=== PATIENT | female | born 1985 | race Caucasian/White ===

== ENCOUNTER 2024-04-11 11:38 | Emergency (ER) | payer MEDICAID, SELFPAY ==
--- NOTE | 2024-04-11 12:04 | ED.GENADULT ---
HPI - General Adult General Chief complaint: Dental/Oral Stated complaint: mouth infection going down neck History of Present Illness HPI narrative: left without completing treatment Related Data Allergies Allergy/AdvReac Type Severity Reaction Status Date / Time Macrolide Antibiotics Allergy Involuntary Verified 04/13/24 13:01 Spasms quetiapine [From Seroquel] Allergy Involuntary Verified 04/13/24 13:01 Spasms trazodone Allergy Involuntary Verified 04/13/24 13:01 Spasms vancomycin Allergy Involuntary Verified 04/13/24 13:01 Spasms PMFSH Social History Social History Smoked in Last 30 Days: Yes Use of substances other than those prescribed or required for medical reasons: Yes Substance Use Type: Crack/Cocaine, Heroin and IV Drugs Substance Use Frequency: Chronic Longstanding Last Used Substance: Days (ago) Advance Directives: No Advance Directives Information Provided: No Do you have a plan to hurt others: No Plan Patient : No Physical Exam ED Vital Signs: BMI result Body Mass Index 28.5 Course Course Course Narrative: This is an RME performed by Cary Guadalupe CNP: Additional HPI, ROS, PE not included below will be deferred to primary provider. Patient is a 38-year-old female who presents to the emergency department reporting concern for dental infection. She reports 4 days ago she had 7 teeth removed from the left side of her mouth, the following day she noticed significant swelling to the face and had concern for infection. She presented back to the dental provider and was given a prescription for amoxicillin. However, despite taking it yesterday she noticed a small lump to the left side of her neck, which has increased in size upon awakening today with discomfort. She reports a history of abscesses and she is concerned that this is an abscess. She denies fevers, chills, shortness of breath, chest pain. Physical exam: Soft palpable lump to the lateral neck. No obvious dental abscess. No trismus. No drooling. No induration of the soft palate. Uvula midline. Exam: Labs, CT Medical Decision Making Lab Data 04/11/24 12:32 04/11/24 12:32 Labs: Lab Results 04/11/24 Range/Units 12:32 WBC 2.9 L (4.8-10.8) X10*3/uL RBC 3.60 L (4.20-5.50) X10*6/uL Hgb 10.3 L (12.0-16.0) g/dl Hct 31.9 L (37.0-47.0) % MCV 88.6 (80.0-98.0) fL MCH 28.6 (27.0-33.0) pg MCHC 32.3 (31.0-35.0) g/dl RDW 17.8 H (11.0-16.0) % Plt Count 171 (160-400) X10*3/uL MPV 8.7 L (9.4-12.3) fL Immature Gran % (Auto) 0.7 H (0.0-0.4) % Neut % (Auto) 45.2 (45-73) % Lymph % (Auto) 22.1 (20-40) % [place] % (Auto) 15.1 H (2-11) % Eos % (Auto) 16.5 H (0-4) % Baso % (Auto) 0.4 (0-2) % Lymph # (Auto) 0.6 L (1.2-4.9) X10*3/uL [place] # (Auto) 0.4 (0.1-1.2) X10*3/uL Eos # (Auto) 0.5 H (0.0-0.4) X10*3/uL Baso # (Auto) 0.0 (0.0-0.2) X10*3/uL Abs Immat Gran (auto) 0.02 (0.00-0.03) X10*3/uL Absolute Neuts (auto) 1.3 L (2.0-8.3) x10*3/uL Absolute Nucleated RBC 0.000 (0.0-0.012) X10*3/uL Nucleated RBC % (auto) 0.0 (0.0-0.2) /100WBC Sodium 141 (135-145) mmol/L Potassium 4.8 (3.3-5.1) mmol/L Chloride 102 (96-108) mmol/L Carbon Dioxide 30 H (22-29) mmol/L Anion Gap 14 (12-20) BUN 35 H (9-16) mg/dL Creatinine 0.82 (0.5-1.4) mg/dL Estim Creat Clear Calc 91.5 Estimated GFR > 60 Random Glucose 86 (60-115) mg/dL Lactic Acid 1.1 (0.5-2.0) mmol/L Calcium 9.6 (8.4-10.2) mg/dL Total Bilirubin 0.2 (0.0-1.0) mg/dL AST 75 H (5-31) U/L ALT 67 H (0-31) U/L Alkaline Phosphatase 93 (39-117) U/L Total Protein 8.1 H (6.5-8.0) g/dL Albumin 3.6 (3.5-5.0) g/dL Discharge Plan Discharge Clinical Impression: Mass of lateral neck Patient Disposition: Left W/O Completing Treatment Discharge Date/Time: 04/11/24 22:00
[2024-04-11 12:05] VITALS: BP 130/55; PULSE 66; RESP 20; TEMP 36.6; O2SAT 96; BMI 28.5
[2024-04-11 12:41] LABS: MANUAL DIFF FLAG NO
[2024-04-11 12:43] LABS: Basophils Percent Auto 0.4 % (0-2); Eosinophils Absolute Auto 0.5 X10*3/uL (0.0-0.4); Eosinophils Percent Auto 16.5 % (0-4); Hematocrit 31.9 % (37.0-47.0); Hemoglobin 10.3 g/dl (12.0-16.0); Imm Gran Abs Auto 0.02 X10*3/uL (0.00-0.03); Imm Gran Pct Auto 0.7 % (0.0-0.4); Lymphocytes Absolute Auto 0.6 X10*3/uL (1.2-4.9); Lymphocytes Percent Auto 22.1 % (20-40); Mean Corpuscular HGB Conc 32.3 g/dl (31.0-35.0); Mean Corpuscular Hemoglobin 28.6 pg (27.0-33.0); Mean Corpuscular Volume 88.6 fL (80.0-98.0); Mean Platelet Volume 8.7 fL (9.4-12.3); Monocytes Absolute Auto 0.4 X10*3/uL (0.1-1.2); Monocytes Percent Auto 15.1 % (2-11); Neutrophils Absolute Auto 1.3 x10*3/uL (2.0-8.3); Neutrophils Percent Auto 45.2 % (45-73); Platelet Count 171 X10*3/uL (160-400); Red Cell Distribution Width 17.8 % (11.0-16.0); White Blood Count 2.9 X10*3/uL (4.8-10.8)
[2024-04-11 12:54] LABS: Lactic Acid 1.1 mmol/L (0.5-2.0)
[2024-04-11 12:57] LABS: Alanine Aminotransferase 67 U/L (0-31); Albumin Level 3.6 g/dL (3.5-5.0); Alkaline Phosphatase 93 U/L (39-117); Anion Gap 14 (12-20); Aspartate Amino Transferase 75 U/L (5-31); Bilirubin Total 0.2 mg/dL (0.0-1.0); Blood Urea Nitrogen 35 mg/dL (9-16); Calcium 9.6 mg/dL (8.4-10.2); Carbon Dioxide 30 mmol/L (22-29); Chloride 102 mmol/L (96-108); Creatinine Clr Calc Pharmacy 91.5; Estimated Glomerular Filt Rate > 60; Glucose Random 86 mg/dL (60-115); Potassium 4.8 mmol/L (3.3-5.1); Sodium 141 mmol/L (135-145); Total Protein 8.1 g/dL (6.5-8.0)
== END 2024-04-11 22:00 | disposition left against medical advice (07) ==
PROVIDERS: Nurse Practitioner Family; Emergency Provider Emergency Medicine
DX: R22.1 Localized swelling, mass and lump, neck (principal); Z79.899 Other long term (current) drug therapy
CPT/HCPCS: 36415; 80053; 83605; 85025; 87040; 99281; 99283

== ENCOUNTER 2024-04-13 11:31 | Emergency (ER) | payer MEDICAID, SELFPAY ==
--- NOTE | ~2024-04-13 | XR_ITS ---
EXAMINATION: XR CHEST CLINICAL INFORMATION: Right lung mass COMPARISON: None available. TECHNIQUE: Frontal view of the chest was obtained. FINDINGS: The heart and pulmonary vessels appear normal. The cavitary mass seen in the right upper lobe on the CT scan is identified measuring about 6.7 x 2.4 cm. No pleural effusions. No consolidation. XR/XR chest 1V IMPRESSION: Cavitary mass right upper lobe. Contrast-enhanced CT scan of the chest is recommended for further evaluation.
--- NOTE | ~2024-04-13 | CT_ITS ---
EXAMINATION: CT SOFT TISSUE NECK WITH CONTRAST CLINICAL INFORMATION: Pain in left neck swelling. COMPARISON: None available. TECHNIQUE: Following the intravenous administration of 100 mL of Omnipaque 350 intravenous contrast, helical imaging was performed in the axial plane with generation of coronal and sagittal reformatted images. This CT examination was performed using dose optimization techniques as appropriate, variously including the following: *Automated exposure control *Adjustment of mA and/or kV according to patient size (this includes techniques or standardized protocols for targeted exams where dose is matched to indication/reason for exam; i.e. extremities or head) *Use of iterative reconstruction technique DLP: 450 mGy-cm FINDINGS: Visualized intracranial brain parenchyma is unremarkable. There is complete opacification of left maxillary sinus from inflammatory process. Rest of the sinuses are clear. Bilateral parotid, submandibular glands are symmetrical. No soft tissue mass or abnormal lymphadenopathy seen. The trachea is widely patent. There is moderate size cavitary lesion right lung apex with thickening of the lateral wall of the cavity and pleura. No soft tissue mass or soft tissue swelling seen in the left neck. No gross bony abnormality seen. CT/CT soft tissue neck w IV con IMPRESSION: 1. No soft tissue mass or abnormal lymphadenopathy seen in the left neck. 2. There is moderate size cavitary lesion right lung apex with thickening of the lateral wall of the cavity and pleura. 3. Complete opacification of left maxillary sinus from inflammatory process.
[2024-04-13 13:01] VITALS: BP 121/83; PULSE 89; RESP 18; TEMP 36.6; O2SAT 97; BMI 27.5
--- NOTE | 2024-04-13 13:10 | ED_ITS ---
HPI - General Adult General Chief complaint: General Medical Stated complaint: Abscesses Time Seen by Provider: 04/13/24 16:18 Source: patient, RN notes reviewed and old records reviewed Mode of arrival: ambulatory Limitations: no limitations History of Present Illness ED Provider: Carmen ULLOA narrative: 38-year-old female with history of HIV presents for evaluation of a lump on her left side of her neck. Patient reports that she had dental work last week. She believes that she is developing infection as she had 7 teeth removed. She went back to the dentist and was given amoxicillin Patient reports that she ?took a few doses but pills never work for me. ? Patient's last dose was a couple of days ago She states that over the last few days she developed a lump to left side of her neck and she has concerned for an abscess She presented to this ER 2 days ago but left without being seen She denies any fevers, chills. IV drug abuser but denies having ever injected into her neck No other complaints or concerns at this time The patient also reports that she is feeling suicidal. She states that she has a plan but is unwilling to disclose this at this time. Related Data Home Medications ?Medication ?Instructions ?Recorded ?Confirmed albuterol sulfate 90 mcg/actuation 2 puff inhalation Q3-5H PRN 04/14/24 04/14/24 aerosol inhaler (Ventolin HFA) Shortness Of Breath Or Wheezing bictegravir 50 mg-emtricitabine 1 tab PO DAILY 04/14/24 04/14/24 200 mg-tenofovir alafenam 25 mg tablet (Biktarvy) buprenorphine HCl 8 mg sublingual 4 mg sublingual DAILY@1200 04/14/24 04/14/24 tablet buprenorphine HCl 8 mg sublingual 8 mg sublingual BID 04/14/24 04/14/24 tablet clonidine HCl 0.1 mg tablet 0.1 mg PO BID 04/14/24 04/14/24 gabapentin 600 mg tablet 600 mg PO TID 04/14/24 04/14/24 hydroxyzine HCl 25 mg tablet 25 mg PO QID PRN Itching 04/14/24 04/14/24 ibuprofen 800 mg tablet 800 mg PO TID PRN Pain 04/14/24 04/14/24 mirtazapine 30 mg tablet 30 mg PO BEDTIME 04/14/24 04/14/24 sulfamethoxazole 800 1 tab PO DAILY 04/14/24 04/14/24 mg-trimethoprim 160 mg tablet Allergies Allergy/AdvReac Type Severity Reaction Status Date / Time Macrolide Antibiotics Allergy Involuntary Verified 04/13/24 13:01 Spasms quetiapine [From Seroquel] Allergy Involuntary Verified 04/13/24 13:01 Spasms trazodone Allergy Involuntary Verified 04/13/24 13:01 Spasms vancomycin Allergy Involuntary Verified 04/13/24 13:01 Spasms Review of Systems 2 Constitutional: Constitutional: Denies body ache(s), Denies chills, Denies fever(s) and Denies frequent falls Eyes: Eyes: Denies blurry vision ENT: Reports mouth pain and Reports throat swelling Cardiovascular: Cardiovascular: Denies chest pain and Denies dyspnea Respiratory: Respiratory: Denies cough and Denies dyspnea Gastrointestinal: Gastrointestinal: Denies abdominal pain, Denies nausea and Denies vomiting Musculoskeletal: Musculoskeletal: Denies back pain Integumentary/Breasts: Skin/Breast: Denies rash Neurologic: Denies frequent falls Psychiatric: Psychiatric: Reports anxiety and Reports suicidal ideation Allergic/Immunologic: Allergic/Immunologic: Reports throat swelling PMFSH Social History Social History Smoked in Last 30 Days: Yes Use of substances other than those prescribed or required for medical reasons: Yes Substance Use Type: Crack/Cocaine, Heroin and IV Drugs Substance Use Frequency: Chronic Longstanding Last Used Substance: Days (ago) Advance Directives: No Advance Directives Information Provided: No Do you have a plan to hurt others: No Plan Patient : No Physical Exam ED Vital Signs: Vital Signs - 24 hr 04/14/24 14:32 04/14/24 21:04 04/14/24 21:05 Temperature 98.4 F Pulse Rate 91 Respiratory Rate 16 18 Blood Pressure 119/85 119/85 Pulse Oximetry 97 Oxygen Delivery Method Room Air BMI result Body Mass Index 27.5 Const General: healthy appearing, comfortable, no acute distress, alert and awake Nutritional Appearance: well nourished Orientation/consciousness: patient oriented x3 HENMT Head: Yes normocephalic and Yes atraumatic Throat: Yes posterior oropharynx normal Eyes Eyelids: Yes eyelids normal Conjunctivae: conjunctivae normal Sclerae: sclerae normal Corneas: corneas normal Pupils: Equal, round and reactive pupils present EOM: EOMs intact bilaterally Neck Other: Patient has about a 2 cm nonmobile, firm, palpable mass to the left anterior neck. This area is tender. There is no overlying erythema. No drainage, no overlying wounds Neck: Yes full ROM Resp Effort & Inspection: normal respiratory effort, able to speak in complete sentences and not labored Cardio Rate: regular rate Rhythm: regular rhythm GI Inspection: No distended Palpation (GI): Soft to palpation, not firm, nontender, no guarding and not rigid Skin General skin exam: elasticity normal Neuro General: patient oriented x3 Cranial nerves: Yes Equal, round and reactive pupils present and Yes Bilaterally intact EOM present Cognition (Neuro): normal cognition Extrem Other: Moving all extremities well without any obvious deformities Course Course Course Narrative: RME: RME done by PANCHITO Connell. 38-year-old female presents to ED for lump on left side of neck. Patient thinks his abscess. Patient also states vague SI. Patient is seen here yesterday. Patient apparently states no active plan. On exam negative for neck swelling. Patient negative for drooling. Negative for any oral signs infection. Neck exam positive for left cervical or lymphadenopathy. Patient informed to wait to be evaluated with tried to get bed. Labs ordered. Charge nurse made aware. Reevaluation(s) Reevaluation #1: Patient's CT soft tissue neck shows a apical right lung cavitary lesion. When I discussed this with the patient she states that she has been aware of this but is not currently following with anybody regarding it. The patient does not have any chest pain, shortness of breath or cough today. I will obtain chest x-ray to evaluate the rest of the lung murillo for possible lesions, but this appears to be a nonacute issue in the patient may follow-up with outpatient providers Time: 22:37 Reevaluation #2: This patient was signed out to me by the previous emergency team pending psychiatric disposition. The patient had presented to the emergency room for evaluation of a lump on the left side of her neck. She was concerned that this might be an abscess. A CT of the neck was done. There was no significant radiographic finding in the left side of the neck. An incidental finding of a moderate-sized cavitary lesion in the right lung apex with thickening of the lateral wall of the cavity and pleura was seen. A chest x-ray was done to ensure there was no other lesion. There was no other lesion on the chest x-ray. The patient apparently says the cavitary lesion is a longstanding finding. The patient has a history of HIV. The patient is not seem ill otherwise and is afebrile. The patient was judged to be medically clear and was seen by the care team because of thoughts of depression and vague suicidal ideation. She seemed appropriate for voluntary hospitalization. The patient has been accepted in transfer at the [facility] in [facility]. The accepting doctor is Dr. Deion CARRERO. The other hospitalist aware of the CT findings of the cavitary lesion. Medications Administered Generic Name Dose Route Start Last Admin Trade Name Freq PRN Reason Stop Dose Admin Bictegravir/Emtricitabine/Tenofovir 1 tab 04/14/24 10:00 04/14/24 10:06 Bictegrav/Emtricit/Tenofov Ala Tablet PO 1 tab DAILY LUCILLE Administration Buprenorphine HCl 4 mg 04/14/24 12:00 04/14/24 12:54 Buprenorphine Hcl 2 Mg Tab.Subl SUBLINGUAL 4 mg DAILY@1200 LUCILLE Administration Buprenorphine HCl 8 mg 04/14/24 09:00 04/14/24 21:06 Buprenorphine Hcl 8 Mg Tab.Subl SUBLINGUAL 8 mg BID LUCILLE Administration Clonidine HCl 0.1 mg 04/14/24 09:00 04/14/24 21:05 Clonidine Hcl 0.1 Mg Tablet PO 0.1 mg BID LUCILLE Administration Protocol Gabapentin 600 mg 04/14/24 10:00 04/14/24 21:05 Gabapentin 600 Mg Tablet PO 600 mg TID LUCILLE Administration Mirtazapine 30 mg 04/14/24 08:00 04/14/24 21:05 Mirtazapine 30 Mg Tablet PO 30 mg BEDTIME LUCILLE Administration Discontinued Medications Generic Name Dose Route Start Last Admin Trade Name Freq PRN Reason Stop Dose Admin Iohexol 100 ml 04/13/24 19:26 04/13/24 19:26 Iohexol 350 Mg/Ml 100 Ml Infus..Btl IV 04/13/24 19:27 60 ml ONCE ONE Administration Medical Decision Making Medical Decision Making [facility] Narrative: Patient reports recent dental procedure, she is also HIV positive per her report complaining of left-sided neck swelling and mass. Plan for CT scan of the neck to evaluate for abscess. Given that the mass is firm and nonmobile, lymphadenopathy appears a possible diagnosis as well. Her labs are significant for a leukopenia at 2.7 which is consistent with her labs from 2 days ago. Since also consistent with her known history of HIV. Patient's sodium is low at 131, electrolytes are otherwise within normal limits. The patient has 60 and ALT similar to her labs from 2 days ago. Differential Diagnosis Differential Diagnoses: The differential diagnosis associated with the presentation includes Lymphadenopathy Soft tissue mass Cellulitis Abscess Neck pain Depression Substance abuse Suicidal ideation Lab Data MDM Lab Attestation statement: I reviewed the patient's lab results. Please see medical decision making above 04/13/24 13:42 04/13/24 13:42 Labs: Lab Results 04/13/24 04/13/24 04/14/24 Range/Units 13:41 13:42 06:09 WBC 2.7 L (4.8-10.8) X10*3/uL RBC 3.54 L (4.20-5.50) X10*6/uL Hgb 10.1 L (12.0-16.0) g/dl Hct 30.3 L (37.0-47.0) % MCV 85.6 (80.0-98.0) fL MCH 28.5 (27.0-33.0) pg MCHC 33.3 (31.0-35.0) g/dl RDW 17.2 H (11.0-16.0) % Plt Count 191 (160-400) X10*3/uL MPV 9.2 L (9.4-12.3) fL Immature Gran % (Auto) 0.7 H (0.0-0.4) % Neut % (Auto) 43.5 L (45-73) % Lymph % (Auto) 25.5 (20-40) % [place] % (Auto) 23.0 H (2-11) % Eos % (Auto) 6.9 H (0-4) % Baso % (Auto) 0.4 (0-2) % Lymph # (Auto) 0.7 L (1.2-4.9) X10*3/uL [place] # (Auto) 0.6 (0.1-1.2) X10*3/uL Eos # (Auto) 0.2 (0.0-0.4) X10*3/uL Baso # (Auto) 0.0 (0.0-0.2) X10*3/uL Abs Immat Gran (auto) 0.02 (0.00-0.03) X10*3/uL Absolute Neuts (auto) 1.2 L (2.0-8.3) x10*3/uL Absolute Nucleated RBC 0.000 (0.0-0.012) X10*3/uL Nucleated RBC % (auto) 0.0 (0.0-0.2) /100WBC Smear Tech's Comments VERIFIED Sodium 131 L (135-145) mmol/L Potassium 3.9 (3.3-5.1) mmol/L Chloride 96 (96-108) mmol/L Carbon Dioxide 26 (22-29) mmol/L Anion Gap 13 (12-20) BUN 24 H (9-16) mg/dL Creatinine 0.64 (0.5-1.4) mg/dL Estim Creat Clear Calc 115.2 Estimated GFR > 60 Random Glucose 102 (60-115) mg/dL Lactic Acid 1.3 (0.5-2.0) mmol/L Calcium 9.2 (8.4-10.2) mg/dL Total Bilirubin 0.3 (0.0-1.0) mg/dL AST 61 H (5-31) U/L ALT 56 H (0-31) U/L Alkaline Phosphatase 85 (39-117) U/L Total Protein 8.1 H (6.5-8.0) g/dL Albumin 3.7 (3.5-5.0) g/dL Beta HCG, Quant < 2 mIU/mL Urine Color Yellow Urine Appearance Clear Urine pH 7.0 (5.0-9.0) Ur Specific [place] >= 1.030 H (1.005-1.025) Urine Protein Negative (Neg-Trace) mg/dL Urine Glucose (UA) Negative (Negative) mg/dL Urine Ketones Negative (Negative) mg/dL Urine Blood Negative (Negative) Urine Nitrite Negative (Negative) Ur Leukocyte Esterase Trace H (Negative) Urine RBC 0-2 (0-2) /HPF Urine WBC 0-5 (0-5) /HPF Ur Squamous Epith Cells 0-2 (0-2) /HPF Urine Bacteria None Seen (None Seen) Hyaline Casts 0-2 (0-2) /LPF Urine Test NEGATIVE (NEGATIVE) Urine Opiates Screen Not Detected (Not Detect) Ur Buprenorphine Scrn Positive H (Not Detect) ng/mL Ur Oxycodone Screen Not Detected (Not Detect) ng/mL Urine Methadone Screen Not Detected (Not Detect) ng/mL Urine Fentanyl Screen POSITIVE H (Not Detect) Ur Barbiturates Screen Not Detected (Not Detect) Ur Phencyclidine Scrn Not Detected (Not Detect) Ur Amphetamines Screen Not Detected (Not Detect) U Benzodiazepines Scrn Not Detected (Not Detect) Urine Cocaine Screen POSITIVE H (Not Detect) U Marijuana (THC) Screen Not Detected (Not Detect) Influenza Type A (PCR) NEGATIVE (Negative) Influenza Type B (PCR) NEGATIVE (Negative) RSV RNA Qual (PCR) NEGATIVE (Negative) SARS-CoV-2 RNA (RT-PCR) NEGATIVE (Negative) S. pyogenes GrpA JENN Negative (Negative) Discharge Plan Discharge Clinical Impression: Depression, Substance abuse, Cavitary lesion of lung Patient Dis[facility] Additional Instructions: Your CT scan of your neck showed a cavitary lesion of the right upper lung. The follow-up chest x-ray showed this was the only lesion seen Prescriptions: No Action clonidine HCl 0.1 mg tablet 0.1 mg PO BID mirtazapine 30 mg tablet 30 mg PO BEDTIME buprenorphine HCl 8 mg tablet, sublingual 8 mg sublingual BID Rx Instructions: 1 tablet in the morning, 1/2 tablet at noon, 1 tablet in the evening albuterol sulfate [Ventolin HFA] 90 mcg/actuation HFA aerosol inhaler 2 puff inhalation Q3-5H PRN (Reason: Shortness Of Breath Or Wheezing) gabapentin 600 mg tablet 600 mg PO TID ibuprofen 800 mg tablet 800 mg PO TID PRN (Reason: Pain) sulfamethoxazole-trimethoprim 800-160 mg tablet 1 tab PO DAILY hydroxyzine HCl 25 mg tablet 25 mg PO QID PRN (Reason: Itching) buprenorphine HCl 8 mg tablet, sublingual 4 mg sublingual DAILY@1200 Rx Instructions: 1 tablet in the morning, 1/2 tablet at noon, 1 tablet in the evening Biktarvy 50-200-25 mg tablet 1 tab PO DAILY Referrals: Britany Bustos MD [Physician] - (Cavitary pulmonary lesion, HIV) Print Language: Polish
[2024-04-13 13:57] LABS: Basophils Percent Auto 0.4 % (0-2); Eosinophils Absolute Auto 0.2 X10*3/uL (0.0-0.4); Eosinophils Percent Auto 6.9 % (0-4); Hematocrit 30.3 % (37.0-47.0); Hemoglobin 10.1 g/dl (12.0-16.0); Imm Gran Abs Auto 0.02 X10*3/uL (0.00-0.03); Imm Gran Pct Auto 0.7 % (0.0-0.4); Lymphocytes Absolute Auto 0.7 X10*3/uL (1.2-4.9); Lymphocytes Percent Auto 25.5 % (20-40); Mean Corpuscular HGB Conc 33.3 g/dl (31.0-35.0); Mean Corpuscular Hemoglobin 28.5 pg (27.0-33.0); Mean Corpuscular Volume 85.6 fL (80.0-98.0); Mean Platelet Volume 9.2 fL (9.4-12.3); Monocytes Absolute Auto 0.6 X10*3/uL (0.1-1.2); Neutrophils Absolute Auto 1.2 x10*3/uL (2.0-8.3); Neutrophils Percent Auto 43.5 % (45-73); Platelet Count 191 X10*3/uL (160-400); Red Blood Count 3.54 X10*6/uL (4.20-5.50); Red Cell Distribution Width 17.2 % (11.0-16.0); SCAN SMEAR FLAG 1; White Blood Count 2.7 X10*3/uL (4.8-10.8)
[2024-04-13 14:07] LABS: Lactic Acid 1.3 mmol/L (0.5-2.0)
[2024-04-13 14:12] LABS: Alanine Aminotransferase 56 U/L (0-31); Albumin Level 3.7 g/dL (3.5-5.0); Alkaline Phosphatase 85 U/L (39-117); Anion Gap 13 (12-20); Aspartate Amino Transferase 61 U/L (5-31); Bilirubin Total 0.3 mg/dL (0.0-1.0); Blood Urea Nitrogen 24 mg/dL (9-16); Calcium 9.2 mg/dL (8.4-10.2); Carbon Dioxide 26 mmol/L (22-29); Chloride 96 mmol/L (96-108); Creatinine Clr Calc Pharmacy 115.2; Estimated Glomerular Filt Rate > 60; Glucose Random 102 mg/dL (60-115); Potassium 3.9 mmol/L (3.3-5.1); Sodium 131 mmol/L (135-145); Total Protein 8.1 g/dL (6.5-8.0)
[2024-04-13 14:14] LABS: IDNOW Serial# 08D9AD1C; Strep A Nucleic Acid Negative (Negative)
[2024-04-13 14:19] LABS: MANUAL DIFF FLAG SCAN; SLIDE REVIEW VERIFIED
[2024-04-13 14:21] LABS: HCG Quantitative < 2 mIU/mL
[2024-04-13 14:55] LABS: Influenza A PCR NEGATIVE (Negative); Influenza B PCR NEGATIVE (Negative); Resp Syncy Virus RNA Qual PCR NEGATIVE (Negative); SARS COV2 PCR INHOUSE NEGATIVE (Negative)
--- NOTE | 2024-04-13 16:12 | PC.NURSE ---
pt brought in from triage d/t concern for infection. pt recently had multiple teeth removed on - states she had an increase in swelling/pain. pt verbalizes coming in the other day but left d/t being in waiting room for too long. pt presents again today for evaluation. slight swelling noted to left side of face/neck. tender to the touch. pt verbalizes no difficulty swallowing. no sob/wob noted. respirations even/unlabored. in triage - pt made vague SI statement. pt verbalizing to this RN that she is SI w/ a plan to overdose. denies HI. pt verbalizes increase in life stressors/being recently kicked out of [facility]. pt has a hx of IVDU. last used heroin via IVD last night. pt also verbalizing using crack via inhalation this morning. pt changed over into ligature free hospital attire by security. belongings obtained/placed in pod laundry closet. 1:1 sitter present.
[2024-04-13 17:45] VITALS: BP 118/76; PULSE 88; RESP 18; TEMP 36.6; O2SAT 97
--- NOTE | 2024-04-13 18:25 | PC.NURSE ---
pt seen by ED provider/aware of plan of care moving forward. pt waiting to go to CT at this time. resting comfortably in no apparent distress. 1:1 sister remains present.
[2024-04-13 18:32] VITALS: BP 129/83; PULSE 80; RESP 18; TEMP 36.9; O2SAT 97
[2024-04-13] MEDS: iohexoL 350 MG/ML 100 ML INFUS..BTL IV (19:26)
[2024-04-13 21:06] VITALS: BP 126/52; PULSE 85; RESP 16; TEMP 37.4; O2SAT 96
--- NOTE | 2024-04-13 21:08 | MHC.EDTECH ---
This tech took over care of patient at this time,hourly rounds and vitals completed,1-1 sitter at bedside for safety
--- NOTE | 2024-04-13 21:35 | PC.NURSE ---
this rn assumed care of pt. pt resting in blood stretcher, no acute distress noted 1:1 sitter at bedside for safety. plan of care continues.
[2024-04-13 23:32] VITALS: BP 121/86; PULSE 76; RESP 16; TEMP 36.9; O2SAT 98
--- NOTE | 2024-04-13 23:33 | MHC.EDTECH ---
Hourly rounds and vitals completed,patient is resting,1-1 sitter at bedside for safety
--- NOTE | 2024-04-14 00:46 | PC.NURSE ---
plan to move pt to POD. report given to Julio at this time.
--- NOTE | 2024-04-14 02:26 | MHC.CARE ---
CARE Team attempted to meet with the pt on multiple occasions. Each time the pt stated that she was to tired. Pt is a polysubstance user and stated that she has not slept in days. Pt is now considered homeless. She is from the [facility]. She is requesting to be seen in the morning. ED provider PANCHITO Saucedo was made aware of the pt's request and he stated that this was fine. Pt will be seen in the morning by the CARE Team.
[2024-04-14 05:49] VITALS: BP 134/74; PULSE 76; RESP 18; TEMP 36.8; O2SAT 92
[2024-04-14 06:16] LABS: Appearance Urine Clear; Color Urine Yellow; Glucose Urine UA Negative (Negative); Leukocyte Esterase Urine Trace (Negative); Nitrite Urine Negative (Negative); Specific Gravity - Urine >= 1.030 (1.005-1.025); UMIC TRIGGER UA YES; Urine Blood Negative (Negative); Urine Ketones Negative (Negative); Urine Protein Negative (Neg-Trace)
[2024-04-14 06:19] LABS: Bacteria Urine None Seen (None Seen); Hyaline Casts Urine 0-2 /LPF (0-2); RBC Urine 0-2 /HPF (0-2); Squamous Epithelial Cell Urine 0-2 /HPF (0-2); UPreg QC Valid YES; Urine Pregnancy NEGATIVE (NEGATIVE); WBC Urine 0-5 /HPF (0-5)
[2024-04-14 06:27] LABS: Amphetamine Screen Urine Not Detected (Not Detect); Barbiturates, Urine Not Detected (Not Detect); Benzodiazepines Screen Urine Not Detected (Not Detect); Buprenorphine Scr Positive (Not Detect); Cannabinoid Screen Urine Not Detected (Not Detect); Cocaine Screen Urine POSITIVE (Not Detect); Fentanyl, urine POSITIVE (Not Detect); Methadone Screen, Urine Not Detected (Not Detect); Opiate Screen Urine Not Detected (Not Detect); Phencyclidine Screen Urine Not Detected (Not Detect)
--- NOTE | 2024-04-14 07:36 | PC.NURSE ---
Assumed care of patient at 0645, patient appears to be sleeping, respirations even and unlabored, no apparent distress noted. Continue plan of care for care team eval this am
[2024-04-14 07:37] LABS: Oxycodone Screen Urine Not Detected (Not Detect)
[2024-04-14] MEDS: cloNIDine HCL 0.1 MG TABLET PO ×2 (09:31→21:05)
[2024-04-14] MEDS: Mirtazapine 30 MG TABLET PO ×2 (09:31→21:05)
--- NOTE | 2024-04-14 09:39 | PHA.MEDREC ---
Pharmacy Consult ? Medication Reconciliation Pharmacy has completed the medication reconciliation. spoke with patient to confirm medications. Patient is on Biktarvy, directions for buprenorphine confirmed with patient and [facility]
[2024-04-14] MEDS: Gabapentin 600 MG TABLET PO ×3 (10:06→21:05)
[2024-04-14] MEDS: Bictegrav/Emtricit/Tenofov Ala TABLET 1 TAB PO (10:06)
--- NOTE | 2024-04-14 10:10 | PC.NURSE ---
at approximately 1008, this RN was speaking with the patient, patient was found to have IV line still in LFA. This RN immediately removed IV. Patient appears to be in no apparent distress. Medicated per MAR
--- NOTE | 2024-04-14 10:24 | PC.NURSE ---
Re: Subutex Subutex was pending from pharmacy, now waiting for dose to be brought down
[2024-04-14] MEDS: Buprenorphine HCL 8 MG TAB.SUBL SUBLINGUAL ×2 (10:35→21:06)
[2024-04-14] MEDS: Buprenorphine HCL 2 MG TAB.SUBL 4 MG SUBLINGUAL (12:54)
[2024-04-14 14:32] VITALS: RESP 16
--- NOTE | 2024-04-14 14:33 | PC.NURSE ---
Patient now sleeping, respirations even and unlabored, no apparent distress. Patient was placed on S12 and is pending dual dx bed at this time
--- NOTE | 2024-04-14 19:07 | MHC.CARE ---
Dual Bed Search was conducted for this pt. Pt is accepted to [facility] for 04/15/24. ETA 9am. Dr. Prince accepting. Facility will call for N2N jeramy per Konstantin @ [facility].
[2024-04-14 21:04] VITALS: BP 119/85; PULSE 91; RESP 18; TEMP 36.9; O2SAT 97
[2024-04-14 21:05] VITALS: BP 119/85
--- NOTE | 2024-04-15 07:01 | PC.NURSE ---
Assumed care of patient at 0645, patient appears to be sleeping, respirations even and unlabored. Plan [facility] am
[2024-04-15] MEDS: Buprenorphine HCL 8 MG TAB.SUBL SUBLINGUAL (08:20)
[2024-04-15] MEDS: Gabapentin 600 MG TABLET PO (08:20)
[2024-04-15] MEDS: Bictegrav/Emtricit/Tenofov Ala TABLET 1 TAB PO (08:20)
[2024-04-15] MEDS: cloNIDine HCL 0.1 MG TABLET PO (08:20)
[2024-04-15 08:25] VITALS: BP 112/72; PULSE 90; RESP 20; TEMP 37.1; O2SAT 96
[2024-04-15 11:15] VITALS: BP 142/68; PULSE 87; RESP 16; TEMP 36.6; O2SAT 98
== END 2024-04-15 11:16 ==
PROVIDERS: Physician Assistant; Emergency Provider Emergency Medicine
DX: R91.1 Solitary pulmonary nodule (principal); F19.10 Other psychoactive substance abuse, uncomplicated; F32.A Depression, unspecified; R22.1 Localized swelling, mass and lump, neck; Z21 Asymptomatic human immunodeficiency virus [HIV] infection status
CPT/HCPCS: 0241U; 70491; 71045; 80053; 80307; 81001; 81025; 83605; 84702; 85025; 87040; 87651; 99285; J0571; Q9967; S9485